=== PATIENT | female | born 2000 | race Caucasian/White ===

== ENCOUNTER → 2019-11-16 | Outpatient (CLI) | payer BC | LOC: LABNPT 11:30 | PROVIDERS: ATTEND Nurse Practitioner Family | DX: R50.9 Fever, unspecified (principal); R51 Headache; Z20.828 Contact with and (suspected) exposure to other viral communicable diseases | CPT/HCPCS: 87635 ==

== ENCOUNTER → 2022-02-28 | Outpatient (CLI) | payer BC ==
--- NOTE | 2022-02-28 17:43 | Diagnostic Imaging Report ---
INDICATION: patient, survey. TECHNIQUE: Multiple real-time grayscale images were obtained over the gravid uterus. COMPARISON: None during this . FINDINGS: A single live intrauterine fetus is seen measuring 20 weeks 5 days by composite measurements with sonographic EDC of 07/13/2022. The fetus is in cephalic presentation. Placenta is posterior with no evidence of previa. heart rate is 149 bpm. Amniotic fluid index is normal at 15.1 cm. Cervical length is 3.4 cm. The distance from the internal os to the placental tip was 6.9 cm. anatomic survey demonstrates normal-appearing kidneys and bladder and stomach. Normal-appearing intracranial ventricles are seen. Four-chamber heart view appear normal. Three-vessel cord and cord insertion appear normal. Views of the spine were unremarkable. Maternal adnexa show no free fluid. Biometrical measurements are as follows: Biparietal 4.89 cm, age 20 weeks 6 days. Head circumference 18.82 cm, age 21 weeks 1 days. Abdominal circumference 14.98 cm, age 20 weeks 2 days. Femur length 3.35 cm, age 20 weeks 4 days. Sonographic estimate age: 20 weeks 5 days. Sonographic estimated date of delivery: 07/13/2022. Estimated Weight: 354 gm (+/- 52 gm). LMP percentile: 54%. heart rate: 149 beats per minute. number: 1 of 1. IMPRESSION: Single live intrauterine fetus measuring 20 weeks 5 days in size with no detectable abnormalities. Dictated by: Dictated on workstation # [id number]
== END ==
LOC: RAD 15:03
PROVIDERS: ATTEND Nurse Practitioner Women's Health
DX: Z34.02 Encounter for supervision of normal first pregnancy, second trimester (principal); Z3A.20 20 weeks gestation of pregnancy
CPT/HCPCS: 76805

== ENCOUNTER 2022-06-06 21:41 | Outpatient (CLI) | payer BC ==
[~2022-06-06] VITALS: Ht 172.7 cm; Wt 87.2 kg
[2022-06-06 21:55] VITALS: BP 120/73
[2022-06-06] MEDS ORDERED: FERR-84 PO (22:20)
[2022-06-06] MEDS ORDERED: PREN-142 PO (22:20)
[2022-06-06] MEDS ORDERED: SERT50TA2 PO (22:20)
[2022-06-06 22:28] LABS: BILIRUBIN,URINE NEGATIVE (NEGATIVE); CLARITY,URINE CLEAR; COLOR,URINE YELLOW; GLUCOSE, URINE (UA) NEGATIVE (NEGATIVE); KETONES,URINE NEGATIVE (NEGATIVE); LEUKOCYTE ESTERASE ,URINE NEGATIVE (NEGATIVE); NITRITE,URINE NEGATIVE (NEGATIVE); PH,URINE 7.5 (5-9); PROTEIN,URINE NEGATIVE (NEGATIVE)
[2022-06-06 22:47] LABS: AMORPHOUS SEDIMENT,UR RARE AMOR PHOSPHATE /LPF; BACTERIA,URINE NEGATIVE /HPF; WBC,URINE RARE /HPF
[2022-06-06] MEDS ORDERED: NS IV 1000 ML 1,000 ML IV SCH (23:00)
[2022-06-06] MEDS ORDERED: TERBUTALINE INJ 1 MG/ML (BRETHINE) AMP ONE (23:00)
[2022-06-06] MEDS ORDERED: TERBUTALINE INJ 1 MG/ML (BRETHINE) AMP SC ONE (23:00)
[2022-06-06] MEDS ORDERED: NS IV 1000 ML 1,000 ML ONE (23:02)
[2022-06-07] MEDS ORDERED: D5 LR IV SOLUTION 1,000 ML IV SCH
[2022-06-07 01:19] VITALS: BP 103/57
[2022-06-07 07:33] VITALS: BP 100/55
[2022-06-07 08:35] VITALS: BP 100/55
--- NOTE | 2022-06-07 08:38 | History & Physical-OB ---
OB - Chief Complaint & HPI Date/Time Date of Admission: Date of Admission: 06/06/2022 Date seen by a Provider: Jun 07, 2022 Time Seen by a Provider: 08:00 Chief Complaint/History OB-Reason for Admission/Chief: Hx : 1 Hx Para: 0 Expected Date of Delivery: Jul 16, 2022 Gestational Age in Weeks: 34 Gestational Age in Days: 3 Other reason for admission: Left sided lower abdominal pain that is constant. Reports it started a few days ago and came and went, but overnight became constant. Reports no bleeding. Denies nausea, diarrhea, dysuria Admission Nurse Assessment Rev: Yes History of Labs Laboratory Tests Test 06/06/22 21:50 Range/Units Urine Color YELLOW Urine Clarity CLEAR Urine pH 7.5 5-9 Urine Specific [place] 1.020 1.016-1.022 Urine Protein NEGATIVE NEGATIVE Urine Glucose (UA) NEGATIVE NEGATIVE Urine Ketones NEGATIVE NEGATIVE Urine Nitrite NEGATIVE NEGATIVE Urine Bilirubin NEGATIVE NEGATIVE Urine Urobilinogen 0.2 < = 1.0 MG/DL Urine Leukocyte Esterase NEGATIVE NEGATIVE Urine RBC (Auto) NEGATIVE NEGATIVE Urine RBC NONE /HPF Urine WBC RARE /HPF Urine Squamous Epithelial Cells 2-5 /HPF Urine Crystals PRESENT H /LPF Urine Amorphous Sediment RARE JULIO CÉSAR PHOSPHATE H /LPF Urine Bacteria NEGATIVE /HPF Urine Casts NONE /LPF Urine Mucus SMALL H /LPF Urine Culture Indicated NO Allergies and Home Medications Allergies Coded Allergies: No Known Drug Allergies (Unverified , 06/06/22) Patient Home Medication List Home Medication List Reviewed: Yes Ferrous Sulfate (Iron) 325 Mg (65 Mg Iron) Tablet, 325 MG PO DAILY, (Reported) Entered as Reported by: GAUDENCIO HOLLY on 06/06/222219 Last Action: New Order Vit No.124/Iron/FA ( Vitamin Tablet) 27 Mg Iron-800 Mcg Tablet, 1 EACH PO DAILY, (Reported) Entered as Reported by: GAUDENCIO HOLLY on 06/06/222219 Last Action: New Order Sertraline HCl (Zoloft) 50 Mg Tablet, 50 MG PO DAILY, (Reported) Entered as Reported by: GAUDENCIO HOLLY on 06/06/222219 Last Action: New Order OB - History Hx of Present Care: Yes Ultrasounds: Normal mid trimester US Obstetrical Complications: None Medical Complications: None Obstetrical History Hx : 1 Hx Para: 0 Hx Total # of Abortions (Spona: 0 Patient Past Medical History n/a Social History/Family History Alcohol Use: Denies Use Recreational Drug Use: No 2nd Hand Smoke Exposure: No Immunizations Influenza Vaccine Up-to-Date: Yes; Up-to-Date OB - Admission Exam Physical Exam Vitals: Vital Signs 06/07/22 07:33 Temp 36.6 Pulse 89 Resp 18 B/P (MAP) 100/55 (70) Pulse Ox 97 O2 Delivery Room Air HEENT: NCAT Heart: Rhythm Normal Lungs: Clear Abdomen: Non tender (gravid 34 weeks) Cervical Dilatation: None Effacement: 50% Station: -3 Membranes: Intact Heart Rate: 130's Accelerations: Accelerations Present Decelerations: No Decelerations Short Term Variability: Present Alf Variability: Average (6-25) Contractions on Admission: 6-10 Minutes Apart Intensity: Mild Labs Laboratory Tests Test 06/06/22 21:50 Range/Units Urine Color YELLOW Urine Clarity CLEAR Urine pH 7.5 5-9 Urine Specific [place] 1.020 1.016-1.022 Urine Protein NEGATIVE NEGATIVE Urine Glucose (UA) NEGATIVE NEGATIVE Urine Ketones NEGATIVE NEGATIVE Urine Nitrite NEGATIVE NEGATIVE Urine Bilirubin NEGATIVE NEGATIVE Urine Urobilinogen 0.2 < = 1.0 MG/DL Urine Leukocyte Esterase NEGATIVE NEGATIVE Urine RBC (Auto) NEGATIVE NEGATIVE Urine RBC NONE /HPF Urine WBC RARE /HPF Urine Squamous Epithelial Cells 2-5 /HPF Urine Crystals PRESENT H /LPF Urine Amorphous Sediment RARE JULIO CÉSAR PHOSPHATE H /LPF Urine Bacteria NEGATIVE /HPF Urine Casts NONE /LPF Urine Mucus SMALL H /LPF Urine Culture Indicated NO OB - Assessment/Plan/Diagnosis Assessment Assessment: observation Admission Dx 21 yo @ 34.3 Left lower abdominal pain Irregular contractions Admission Status: Observation Reason for Inpatient Admission: Lower abdominal pain in 34 week Plan Other Plan Patient given IVF bolus overnight with single dose of terbutaline. Contractions resolved. She is doing much better this AM, and would like to go home. Patient given PTL precautions ANA M MOURA DO Jun 07, 2022 08:38
--- NOTE | 2022-06-07 08:55 | Physician Query-Final Dx ---
TERRANCE06/07/22 0855: Final Diagnosis Give Final Diagnosis Please give Final Diagnosis ANA M MOURA DO 06/07/22 1340: Final Diagnosis Give Final Diagnosis See note: 34 week IUP Left abdominal pain Irregular contractions TERRANCEMayJun 07, 2022 08:55 ANA M MOURA DO Jun 07, 2022 13:40
== END 2022-06-07 08:35 | disposition home or self-care (01) ==
LOC: WSo 21:41 → LDRP 21:42 → WSo 06-07 08:35
PROVIDERS: ATTEND Obstetrics & Gynecology
DX: O99.891 Other specified diseases and conditions complicating pregnancy (principal); R10.9 Unspecified abdominal pain; Z3A.34 34 weeks gestation of pregnancy
CPT/HCPCS: 81000; 96360; 96361; 96372; G0463; 99214

== ENCOUNTER 2022-07-09 18:49 | Inpatient (IN) | payer BC ==
[~2022-07-09] VITALS: Ht 175.3 cm; Wt 89.0 kg
[~2022-07-09 18:49] MED LIST: FERR-84 PO; PREN-142 PO; SERT50TA2 PO
[2022-07-09 19:30] VITALS: BP 123/74
[2022-07-09 20:00] LABS: BASOPHILS % (AUTO) 0 % (0-10); EOSINOPHILS % (AUTO) 0 % (0-10); HEMATOCRIT 31 % (35-52); HEMOGLOBIN 10.5 g/dL (11.5-16.0); LYMPHOCYTES # (AUTO) 1.8 10^3/uL (1.0-4.0); LYMPHOCYTES % (AUTO) 17 % (12-44); MEAN CORPUSCULAR HEMOGLOBIN 30 pg (25-34); MEAN CORPUSCULAR HGB CONC 34 g/dL (32-36); MEAN CORPUSCULAR VOLUME 88 fL (80-99); MEAN PLATELET VOLUME 11.7 fL (9.0-12.2); MONOCYTES # (AUTO) 0.7 10^3/uL (0.0-1.0); MONOCYTES % (AUTO) 7 % (0-12); NEUTROPHILS # (AUTO) 7.6 10^3/uL (1.8-7.8); NEUTROPHILS % (AUTO) 75 % (42-75); PLATELET COUNT 198 10^3/uL (130-400); WHITE BLOOD COUNT 10.1 10^3/uL (4.3-11.0)
[2022-07-09] MEDS ORDERED: TERBUTALINE INJ 1 MG/ML (BRETHINE) AMP SC PRN (20:00)
[2022-07-09] MEDS ORDERED: LIDOCAINE 1% INJ 10 ML VIAL INJ PRN (20:00)
[2022-07-09] MEDS ORDERED: NS IV 1000 ML 1,000 ML IV ONE (20:00)
[2022-07-09 20:28] LABS: CLARITY,URINE CLEAR; COLOR,URINE YELLOW; GLUCOSE, URINE (UA) NEGATIVE (NEGATIVE); KETONES,URINE 3+ (NEGATIVE); LEUKOCYTE ESTERASE ,URINE 1+ (NEGATIVE); NITRITE,URINE NEGATIVE (NEGATIVE); PH,URINE 7.5 (5-9); PROTEIN,URINE 1+ (NEGATIVE)
[2022-07-09 20:44] LABS: BACTERIA,URINE FEW /HPF; BILIRUBIN,URINE 1+ (NEGATIVE)
[2022-07-09] MEDS: D5 LR IV SOLUTION 1,000 ML IV SCH (21:09)
[2022-07-09] MEDS ORDERED: CATHETER FLUSH 10 ML SYR IV SCH (22:00)
[2022-07-09 23:09] VITALS: BP 130/76
[2022-07-10] VITALS (58 sets, daily range): BP systolic 99–151; BP diastolic 53–94
[2022-07-10] MEDS ORDERED: HYDROmorphone 2 MG/ML VIAL (DILAUDID) ONE (02:44)
[2022-07-10] MEDS ORDERED: HYDROmorphone 2 MG/ML VIAL (DILAUDID) IV ONE (02:45)
[2022-07-10] MEDS ORDERED: LACTATED RINGERS 1,000 ML IV ONE (03:00)
[2022-07-10] MEDS ORDERED: fentaNYL 2 mcg/ml BUPIVA 0.125 100 ML ONE (03:12)
[2022-07-10] MEDS ORDERED: LIDOCAINE PF 2% 5 ML (XYLOCAINE) VIAL ONE (03:23)
[2022-07-10] MEDS ORDERED: fentaNYL INJ 100 MCG/2 ML AMP ONE (03:23)
[2022-07-10] MEDS ORDERED: diphenhydrAMINE 50 MG/ML INJ (BENADRYL) IV PRN (04:00)
[2022-07-10] MEDS ORDERED: ONDANSETRON 4 MG/2 ML (SDV) Z0FRAN IV PRN (04:00)
[2022-07-10] MEDS ORDERED: METOCLOPRAMIDE INJ 10 MG/2 ML (REGLAN) IV PRN (04:00)
[2022-07-10] MEDS ORDERED: LACTATED RINGERS 1,000 ML IV SCH (04:00)
[2022-07-10] MEDS ORDERED: fentaNYL 2 mcg/ml BUPIVA 0.125 100 ML EPI SCH (04:00)
[2022-07-10] MEDS ORDERED: NALOXONE 0.4 MG/ML 1 ML (NARCAN) VIAL IV PRN ×3 (04:00→12:15)
[2022-07-10] MEDS: D5 LR IV SOLUTION 1,000 ML IV SCH (04:23)
--- NOTE | 2022-07-10 06:22 | History & Physical-OB ---
JOEL PURDY 07/10/22 0622: OB - Chief Complaint & HPI Date/Time Date of Admission: Date of Admission: Jul 09, 2022 at 18:49 Date seen by a Provider: Jul 10, 2022 Time Seen by a Provider: 06:30 Chief Complaint/History OB-Reason for Admission/Chief: Induction of Labor Hx : 1 Hx Para: 0 Expected Date of Delivery: Jul 16, 2022 Gestational Age in Weeks: 39 Gestational Age in Days: 1 Indication for induction: other (elective) Other O- Antibody neg RI VDRL NR HBsAg NR HIV NR GC neg GBS neg Allergies and Home Medications Allergies Coded Allergies: No Known Drug Allergies (Unverified , 06/06/22) Patient Home Medication List Home Medication List Reviewed: Yes Ferrous Sulfate (Iron) 325 Mg (65 Mg Iron) Tablet, 325 MG PO DAILY, (Reported) Entered as Reported by: GAUDENCIO HOLLY on 06/06/222219 Vit No.124/Iron/FA ( Vitamin Tablet) 27 Mg Iron-800 Mcg Tablet, 1 EACH PO DAILY, (Reported) Entered as Reported by: GAUDENCIO HOLLY on 06/06/222219 Sertraline HCl (Zoloft) 50 Mg Tablet, 50 MG PO DAILY, (Reported) Entered as Reported by: GAUDENCIO HOLLY on 06/06/222219 OB - History Hx of Present Care: Yes Ultrasounds: Other (last at 20 weeks, normal) Obstetrical Complications: None Medical Complications: None Information Pre-Hospital Medication Admins: Iron, Zoloft Induced Hypertension: No Maternal Gestational Diabetes: No Obstetrical History Hx : 1 Hx Para: 0 Hx Termination: No Hx Multiple Gestation: No Hx Ectopic : No Hx Stillbirth: No Hx Complication: No Hx Induced Hypertens: No Hx Maternal Gestational Diabet: No Hx Hemorrhage: No Delivery History Hx Dystocia: No Hx Forceps Assisted Delivery: No Hx Vacuum Extraction Assisted: No Hx Placenta Abnormality: No Hx Distress: No Hx Large For Gestational Age I: No Hx Small for Gestational Age I: No Hx Section: No Hx Vaginal Delivery Post C-Sec: No Hx Blood Disorders: No Adverse Rxn to Tranfusion: No Patient Past Medical History NC Social History/Family History Alcohol Use: Denies Use Recreational Drug Use: No Smoking Cessation: Never smoker 2nd Hand Smoke Exposure: No Immunizations Influenza Vaccine Up-to-Date: Yes; Up-to-Date COVID19 Vaccine Press Assistant: Conyac Hepatitis A: Yes Hepatitis B: Yes Rubella: immune RPR/VDRL: Negative GBS Status: Negative HBsAG: Negative OB - Admission Exam Physical Exam Vitals: Vital Signs 07/10/22 07/10/22 03:36 03:42 Temp 36.9 Pulse 66 Resp 18 B/P (MAP) 123/72 (89) Pulse Ox 97 O2 Delivery Room Air HEENT: EOMI Heart: Rhythm Normal Lungs: Clear Abdomen: Gravid Extremities: Edema Cervical Dilatation: 3cm Effacement: 75% Station: Ballotable Membranes: Intact Heart Rate: 120's Accelerations: No Accelerations Decelerations: No Decelerations Short Term Variability: Present Visitor Services Representative Variability: Average (6-25) Contractions on Admission: >10 Minutes Apart Labs Laboratory Tests Test 07/09/22 19:00 07/09/22 19:40 Range/Units Urine Color YELLOW Urine Clarity CLEAR Urine pH 7.5 5-9 Urine Specific [place] 1.015 L 1.016-1.022 Urine Protein 1+ H NEGATIVE Urine Glucose (UA) NEGATIVE NEGATIVE Urine Ketones 3+ H NEGATIVE Urine Nitrite NEGATIVE NEGATIVE Urine Bilirubin 1+ H NEGATIVE Urine Urobilinogen 0.2 < = 1.0 MG/DL Urine Leukocyte Esterase 1+ H NEGATIVE Urine RBC (Auto) 1+ H NEGATIVE Urine RBC 2-5 H /HPF Urine WBC 5-10 H /HPF Urine Squamous Epithelial Cells 2-5 /HPF Urine Crystals NONE /LPF Urine Bacteria FEW H /HPF Urine Casts NONE /LPF Urine Mucus SMALL H /LPF Urine Culture Indicated YES White Blood Count 10.1 4.3-11.0 10^3/uL Red Blood Count 3.45 L 3.80-5.11 10^6/uL Hemoglobin 10.5 L 11.5-16.0 g/dL Hematocrit 31 L 35-52 % Mean Corpuscular Volume 88 80-99 fL Mean Corpuscular Hemoglobin 30 25-34 pg Mean Corpuscular Hemoglobin Concent 34 32-36 g/dL Red Cell Distribution Width 12.7 10.0-14.5 % Platelet Count 198 130-400 10^3/uL Mean Platelet Volume 11.7 9.0-12.2 fL Immature Granulocyte % (Auto) 0 % Neutrophils (%) (Auto) 75 42-75 % Lymphocytes (%) (Auto) 17 12-44 % Monocytes (%) (Auto) 7 0-12 % Eosinophils (%) (Auto) 0 0-10 % Basophils (%) (Auto) 0 0-10 % Neutrophils # (Auto) 7.6 1.8-7.8 10^3/uL Lymphocytes # (Auto) 1.8 1.0-4.0 10^3/uL Monocytes # (Auto) 0.7 0.0-1.0 10^3/uL Eosinophils # (Auto) 0.0 0.0-0.3 10^3/uL Basophils # (Auto) 0.0 0.0-0.1 10^3/uL Immature Granulocyte # (Auto) 0.0 0.0-0.1 10^3/uL OB - Assessment/Plan/Diagnosis Assessment Assessment: induction of labor Admission Dx at 39 weeks 1 day gestational age Presents for induction of labor per patient request Otherwise uncomplicated GBS Neg Admission Status: Inpatient Order (span 2 midnights) Reason for Inpatient Admission: IOL at 39 weeks ANA M MOURA DO 07/10/22932: Allergies and Home Medications Allergies Coded Allergies: No Known Drug Allergies (Unverified , 06/06/22) Patient Home Medication List Ferrous Sulfate (Iron) 325 Mg (65 Mg Iron) Tablet, 325 MG PO DAILY, (Reported) Entered as Reported by: GAUDENCIO HOLLY on 06/06/222219 Vit No.124/Iron/FA ( Vitamin Tablet) 27 Mg Iron-800 Mcg Tablet, 1 EACH PO DAILY, (Reported) Entered as Reported by: GAUDENCIO HOLLY on 06/06/222219 Sertraline HCl (Zoloft) 50 Mg Tablet, 50 MG PO DAILY, (Reported) Entered as Reported by: GAUDENCIO HOLLY on 06/06/222219 OB - Assessment/Plan/Diagnosis Plan Other Plan Verification and Attestation of Medical Student E/M Service A medical student performed and documented this service in my presence. I reviewed and verified all information documented by the medical student and made modifications to such information, when appropriate. I personally performed the physical exam and medical decision making. Ana M Moura, Jul 10, 2022,09:33 JOEL PURDY Jul 10, 2022 06:22 ANA M MOURA DO Jul 10, 2022 09:33
[2022-07-10] MEDS ORDERED: OXYTOCIN PRE-MIX DRIP 500 ML IV ONE ×2 (10:49→12:06)
--- NOTE | 2022-07-10 12:07 | OB Labor & Delivery Record ---
L&D History Date of Service Date of Service: Jul 10, 2022 History Expected Date of Delivery: Jul 16, 2022 Gestational Age in Weeks: 39 Hx : 1 Hx Para: 0 Complications Events: Routine care Operative Indications (Cesarea: N/A-Vaginal Delivery Intrapartal Events: None L&D Stage1 Stage One Onset of Labor - Date: Jul 10, 2022 Monitors and Tracing Monitor Mode: External Heart Rate: 145 Monitor Accelerations: Uniform Monitor Decelerations: Variable Station: 0 Technology Development Intern Variability: Average (6-10) Short Term Variability: Present Presentation: Vertex Vital Signs VS - Last 72 Hours, by Label 07/09/22 07/09/22 07/10/22 07/10/22 19:30 23:09 03:25 03:28 Temp 36.7 36.9 Pulse 86 88 67 69 Resp 16 20 B/P (MAP) 130/76 (94) 141/79 (99) 140/84 (102) Pulse Ox 96 98 97 98 O2 Delivery Room Air Room Air Room Air Room Air 07/10/22 07/10/22 07/10/22 07/10/22 03:31 03:36 03:39 03:40 Temp 36.9 Pulse 68 65 69 71 Resp 20 B/P (MAP) 133/84 (100) 130/87 (101) 135/87 (103) 130/87 (101) Pulse Ox 98 O2 Delivery Room Air Room Air 07/10/22 07/10/22 07/10/22 07/10/22 03:42 03:43 03:50 03:56 Pulse 66 67 75 79 Resp 18 20 18 20 B/P (MAP) 123/72 (89) 132/88 (103) 132/92 (105) 133/88 (103) Pulse Ox 97 99 97 97 O2 Delivery Room Air Room Air Room Air Room Air 07/10/22 07/10/22 07/10/22 07/10/22 04:01 04:06 04:12 04:15 Pulse 62 62 66 70 B/P (MAP) 132/87 (102) 130/81 (97) 131/61 (84) 139/61 (87) Pulse Ox 95 97 98 96 O2 Delivery Room Air Room Air Room Air Room Air 07/10/22 07/10/22 07/10/22 07/10/22 04:31 04:46 05:01 05:17 Pulse 62 58 55 60 B/P (MAP) 109/53 (71) 109/58 (75) 106/57 (73) 99/54 (69) O2 Delivery Room Air Room Air Room Air Room Air 07/10/22 07/10/22 07/10/22 07/10/22 05:31 05:46 06:03 06:18 Pulse 61 58 54 64 B/P (MAP) 104/58 (73) 108/65 (79) 114/59 (77) 114/64 (81) O2 Delivery Room Air Room Air Room Air Room Air 07/10/22 07/10/22 06:32 06:47 Pulse 75 74 B/P (MAP) 129/81 (97) 108/73 (85) O2 Delivery Room Air Room Air Rupture of Membranes Spontaneous Ruture of Membrane: No Amniotic Membrane Rupture Time: 0730 Amniotic Membrane Fluid Desc.: Clear Vaginal Bleeding Description: Normal Show Induction/Anesthesia Epidural Cath Placement - Time: 328 Progress/Notes Patient admitted for elective induction of labor, misoprostol given last night followed by AROM this am and pitocin augmentation after an epidural was placed. She progressed with low dose pitocin augmentation to complete and + 1 station. L&D Stage2 Stage Two Stage II Date: Jul 10, 2022 Monitors and Tracing Monitor Mode: External Heart Rate: 145 Monitor Accelerations: Uniform Monitor Decelerations: Variable Residential Variability: Average (6-10) Short Term Variability: Present Position: Right Occiput Anterior Presentation: Vertex Signs of Distress by FHT Signs of Distress prolonged bradycardia, nuchal cord reduced x 1 after delivery of the head. Cord Descript/Complications Cord Vessel Description: 3 Vessels Complications Due to bradycardia delivery was expedited with heart rate in the 60s by low vaccum extraction from +2 station. With next maternal push kiwi placed over the flexion point with 50mmHg appled using the handpiece the head was delivered with gentle extension over RML episiotomy where the suction was then released. Delivery Type Infant Delivery Method: Low Vacuum Extraction Episiotomy/Perineal Laceration Laceraction(s)/Extensions: Yes Episiotomy Description: Right Mediolateral, 3rd degree Location Modifier: Right Degree (describe repair) RML extended to 3rd degree. Sphincter reapproxiamted with 3-0 vicryl in interupted fashion. The remainder of the repair was done with 3-0 rapide and 2- 0 vicryl suture in usual fashion. Condition of Infant Delivery 1 minute Comment: 8 5 minute Comment: 9 Notes Live male infant weight 8lbs 12 oz. Condition of Infant Condition of Infant: Living Exam: No Observed Abnormalities Resuscitation Resuscitation: N/A - Spontaneous Resp L&D Stage3 Stage Three Stage III Date: Jul 10, 2022 Pictocin Pitocin Administration Comment: 30 mu wide open after delivery of placetna Placenta Delivery Placenta Delivery: Spontaneous Delivery Summary Summary Estimated blood loss (mL): 400 Attending at delivery: Ana M Moura DO Condition of Delivery Examined: Cervix Examined, Uterus Explored Post Hemorrhage: No Condition of Mother stable Condition of Infant (s) stable ANA M MOURA DO Jul 10, 2022 12:07
[2022-07-10] MEDS ORDERED: MEASLES,MUMPS,RUBELLA 1 EA INJ SQ ONE (12:15)
[2022-07-10] MEDS ORDERED: BENZOCAINE/MENTHOL (DERMOPLAST) 56 ML CAN TP PRN (12:15)
[2022-07-10] MEDS ORDERED: DIBUCAINE 1% OINTMENT 28 GM TUBE TOP PRN (12:15)
[2022-07-10] MEDS ORDERED: TETANUS,DIPTH,PERTUSS P/F (BOOSTRIX) 0.5 ML VIAL IM ONE (12:15)
[2022-07-10] MEDS ORDERED: OXYTOCIN PRE-MIX DRIP 500 ML IV SCH (12:15)
[2022-07-10] MEDS ORDERED: WITCH HAZEL(TUCKS) 40 EA JAR TOP PRN (12:15)
[2022-07-10] MEDS: IBUPROFEN 600 MG (MOTRIN) TAB PO SCH ×2 (12:34→19:36)
[2022-07-10] MEDS ORDERED: CATHETER FLUSH 10 ML SYR IV SCH (14:00)
[2022-07-10] MEDS: DOCUSATE SODIUM 100 MG (COLACE) CAP PO SCH (19:35)
[2022-07-11] MEDS: HYDROcodone/APAP 5 MG/325 MG (LORTAB) TAB PO PRN ×2 (00:43→08:19)
[2022-07-11] MEDS: IBUPROFEN 600 MG (MOTRIN) TAB PO SCH ×2 (01:45→08:20)
[2022-07-11 04:01] VITALS: BP 125/72
[2022-07-11 05:46] LABS: MEAN PLATELET VOLUME 11.6 fL (9.0-12.2)
[2022-07-11 05:49] LABS: BASOPHILS % (AUTO) 0 % (0-10); EOSINOPHILS # (AUTO) 0.1 10^3/uL (0.0-0.3); EOSINOPHILS % (AUTO) 1 % (0-10); HEMATOCRIT 23 % (35-52); HEMOGLOBIN 7.7 g/dL (11.5-16.0); LYMPHOCYTES # (AUTO) 2.3 10^3/uL (1.0-4.0); LYMPHOCYTES % (AUTO) 22 % (12-44); MEAN CORPUSCULAR HEMOGLOBIN 31 pg (25-34); MEAN CORPUSCULAR HGB CONC 34 g/dL (32-36); MEAN CORPUSCULAR VOLUME 90 fL (80-99); MONOCYTES # (AUTO) 0.9 10^3/uL (0.0-1.0); MONOCYTES % (AUTO) 8 % (0-12); NEUTROPHILS # (AUTO) 7.2 10^3/uL (1.8-7.8); NEUTROPHILS % (AUTO) 68 % (42-75); PLATELET COUNT 147 10^3/uL (130-400); WHITE BLOOD COUNT 10.5 10^3/uL (4.3-11.0)
--- NOTE | 2022-07-11 06:07 | Postpartum Progress Note ---
Note Note Day # 1 Subjective: Patient is without complaints. Ambulating, voiding. Tolerating a regular diet without nausea or vomiting. Normal lochia. Pain is well controlled with oral pain medications. Patient is breast feeding. Objective: Patient is lying in bed asleep at time of evaluation, rouses easily, with no signs of distress. Physical Exam: General - Alert and oriented, no apparent distress Abdomen - Soft, appropriately tender to palpation, non-distended, fundus firm at umbilicus Extremities - no edema, negative Steven's bilaterally Assessment: PPD 1, s/p NVD Acute blood loss anemia Plan: Routine care. Encourage breast feeding. Encourage ambulation. Ferrous sulfate supplementation. Plan for discharge tomorrow Vitals - Labs Vital Signs - I&O Vital Signs Date Time Temp Pulse Resp B/P (MAP) Pulse Ox O2 Delivery O2 Flow Rate FiO2 07/11/22 04:01 36.5 81 18 125/72 (89) 97 Room Air 07/10/22 23:56 36.5 85 18 124/60 (81) 97 Room Air 07/10/22 20:18 36.3 86 20 129/74 (92) 98 Room Air 07/10/22 14:05 36.2 71 124/75 (91) Room Air 07/10/22 13:35 72 124/77 (93) Room Air 07/10/22 13:05 75 119/82 (94) Room Air 07/10/22 12:30 36.3 97 117/93 (101) Room Air 07/10/22 12:13 36.1 97 117/93 (101) Room Air 07/10/22 12:08 93 136/65 (88) Room Air 07/10/22 12:00 36.6 87 123/71 (88) Room Air 07/10/22 11:45 37.2 93 126/58 (80) Room Air 07/10/22 11:30 36.8 127 151/86 (107) Room Air 07/10/22 11:15 36.1 87 138/94 (109) Room Air 07/10/22 11:00 85 128/75 (92) Room Air 07/10/22 10:45 72 118/61 (80) Room Air 07/10/22 10:30 81 117/72 (87) Room Air 07/10/22 10:20 77 128/67 (87) Room Air 07/10/22 10:10 83 126/81 (96) Room Air 07/10/22 09:55 73 136/79 (98) Room Air 07/10/22 09:40 74 131/75 (93) Room Air 07/10/22 09:24 72 133/78 (96) Room Air 07/10/22 09:18 83 129/79 (96) Room Air 07/10/22 09:10 84 123/67 (85) Room Air 07/10/22 09:02 36.1 77 135/81 (99) Room Air 07/10/22 08:57 75 140/85 (103) Room Air 07/10/22 08:50 73 129/74 (92) Room Air 07/10/22 08:46 90 121/77 (92) Room Air 07/10/22 08:40 82 125/76 (92) Room Air 07/10/22 08:35 65 137/79 (98) Room Air 07/10/22 08:30 59 119/56 (77) Room Air 07/10/22 08:15 63 117/61 (79) Room Air 07/10/22 08:05 59 119/67 (84) Room Air 07/10/22 07:48 82 120/58 (78) Room Air 07/10/22 07:30 36.3 71 129/78 (95) Room Air 07/10/22 07:20 64 135/84 (101) Room Air 07/10/22 06:47 74 108/73 (85) Room Air 07/10/22 06:32 75 129/81 (97) Room Air 07/10/22 06:18 64 114/64 (81) Room Air I & O 07/11/22 07:00 Intake Total 500 ml Balance 500 ml Labs Laboratory Tests 07/11/22 05:20: White Blood Count 10.5, Red Blood Count 2.50L, Hemoglobin 7.7#L, Hematocrit 23L, Mean Corpuscular Volume 90, Mean Corpuscular Hemoglobin 31, Mean Corpuscular Hemoglobin Concent 34, Red Cell Distribution Width 12.8, Platelet Count 147, Mean Platelet Volume 11.6, Immature Granulocyte % (Auto) 1, Neutrophils (%) (Auto) 68, Lymphocytes (%) (Auto) 22, Monocytes (%) (Auto) 8, Eosinophils (%) (Auto) 1, Basophils (%) (Auto) 0, Neutrophils # (Auto) 7.2, Lymphocytes # (Auto) 2.3, Monocytes # (Auto) 0.9, Eosinophils # (Auto) 0.1, Basophils # (Auto) 0.0, Immature Granulocyte # (Auto) 0.1, Percent Immature Platelet Fraction 5.3 Microbiology 07/09/22 Urine Culture - Final, Complete Gram Pos Mixed Bacterial Nicol JOEL PURDY Jul 11, 2022 06:07
[2022-07-11] MEDS ORDERED: PRENATAL VITAMIN 1 EA TAB PO SCH (07:00)
--- NOTE | 2022-07-11 07:30 | Discharge Inst-Women's Service ---
Discharge Inst-Women's Serv Depart Medication/Instructions New, Converted or Re-Newed RX: Transmitted to Pharmacy Final Diagnosis PPD 1 NVD Problems Reviewed?: Yes Consults/Follow Up Additional Follow Up: Yes Orders/Referrals Dr. Moura in 6 weeks Activity Activity: Activity as Tolerated Driving Instructions: No Driving for 1 Week NO SMOKING: NO SMOKING Nothing Inside Vagina: No Douching, No Tarnov, No Tampons Diet Discharge Diet: No Restrictions Symptoms to Report to : Bleeding Excessive, Pain Increased, Fever Over 101 Degrees F, Vaginal Bleeding Increase, Questions/Concerns For Any Problems or Questions: Contact Your Physician ANA M MOURA DO Jul 11, 2022 07:30
[2022-07-11 08:20] VITALS: BP 127/84
[2022-07-11] MEDS: DOCUSATE SODIUM 100 MG (COLACE) CAP PO SCH (08:20)
[2022-07-11] MEDS ORDERED: ACHD5005 PO (08:43)
[2022-07-11] MEDS ORDERED: IBUP-844 PO (08:43)
[2022-07-11] MEDS ORDERED: DOCU100C37 PO (08:43)
[2022-07-11] MEDS ORDERED: WTCHGPD TOP (08:43)
[2022-07-11] MEDS ORDERED: BENZ78AE5 TP (08:43)
[2022-07-11] MEDS ORDERED: DIBU30OI TOP (08:43)
[2022-07-11] MEDS ORDERED: FERROUS SULF 325 MG (IRON) TAB PO SCH (09:00)
[2022-07-11 12:00] VITALS: BP 116/57
--- NOTE | 2022-07-11 12:40 | Anesthesia-Regional Post-Op ---
Regional Patient Condition Mental Status: Alert, Oriented x3 Circulation: Same as Pre-Op Headache: Absent Sensation: Full Recovery Motor Block: Absent Post Op Complications Complications None Follow Up Care/Instructions Patient Instructions None needed. Anesthesia/Patient Condition Patient is doing well, no complaints, stable vital signs, no apparent adverse anesthesia problems. No complications reported per nursing. JASMEET HOWELL CRNA Jul 11, 2022 12:40
[2022-07-11 13:50] VITALS: BP 116/57
== END 2022-07-11 13:50 | disposition home or self-care (01) | DRG 768 ==
LOC: LDRP 18:49 → WS 07-10 17:00
PROVIDERS: ADMIT Obstetrics & Gynecology; ATTEND Obstetrics & Gynecology
PROC: 10907ZC Drainage of Amniotic Fluid, Therapeutic from Products of Conception, Via Natural or Artificial Opening (ICD-10-PCS; 2022-07-09)
PROC: 3E0DXGC Introduction of Other Therapeutic Substance into Mouth and Pharynx, External Approach (ICD-10-PCS; 2022-07-09)
PROC: 10D07Z6 Extraction of Products of Conception, Vacuum, Via Natural or Artificial Opening (ICD-10-PCS; principal; 2022-07-10)
PROC: 0DQR0ZZ Repair Anal Sphincter, Open Approach (ICD-10-PCS; 2022-07-10)
PROC: 0W8NXZZ Division of Female Perineum, External Approach (ICD-10-PCS; 2022-07-10)
DX: O70.20 Third degree perineal laceration during delivery, unspecified (principal); Z37.0 Single live birth; D62 Acute posthemorrhagic anemia; Z3A.39 39 weeks gestation of pregnancy; O76 Abnormality in fetal heart rate and rhythm complicating labor and delivery; O69.81X0 Labor and delivery complicated by cord around neck, without compression, not applicable or unspecified; O90.81 Anemia of the puerperium
CPT/HCPCS: 36415; 81000; 85025; 86780; 86850; 86900; 86901; 87088